=== PATIENT | male | born 1975 | race Asian ===

== ENCOUNTER 2016-10-18 14:30 | Emergency (ER) | payer BC, OTHER ==
[~2016-10-18] VITALS: Ht 175.3 cm; Wt 79.0 kg
[2016-10-18 14:38] VITALS: Ht 175.3 cm; Wt 79.0 kg
--- NOTE | 2016-10-18 14:56 | EMERGENCY ROOM VISIT NOTE ---
History Report prepared by Daniel: Funmi Fleming Under the Supervision of: Dr. Tulio Smith M.D. First contact with patient: 14:30 Stated Complaint: SEIZURE History of Present Illness The patient is a 40 year old male who presents to the Emergency Room via ALS after a sudden seizure that occurred just prior to arrival. Per EMS the patient arrived to the emergency department actively seizing. I evaluated the patient in the ambulance bay and he was given 2 mg of IV Ativan. EMS reports that the patient is a academic coach at the [employer] and had a grandmal seizure. EMS reports that the patient was incoherent, uncooperative, and disoriented. The patient denies any history of seizures. He denies any tongue bite or urinary or bowel incontinence. The history is limited due to the patient being post ictal. Source of History: patient, EMS History Limited By: other (post ictal) Onset: prior to arrival Position: other (global) Quality: other (seizure) Timing: other (sudden) Note: Associated Symptoms: incoherent, uncooperative, disoriented Review of Systems See HPI for pertinent positives & negatives. A total of 10 systems reviewed and were otherwise negative. Past Medical & Surgical No active medical problems Family History No pertinent family history stated. Social History Marital Status: single Occupation Status: employed Current/Historical Medications Scheduled Mirtazapine (Remeron), 15 MG PO BID Allergies Coded Allergies: No Known Allergies (Unverified , 08/16/10) Physical Exam Vital Signs Date Time Temp Pulse Resp B/P (MAP) Pulse Ox O2 Delivery O2 Flow Rate FiO2 10/18/16 18:32 37.5 95 16 135/82 100 10/18/16 18:00 95 16 10/18/16 17:55 91 20 10/18/16 17:54 135/82 10/18/16 17:50 92 13 100 10/18/16 17:45 90 14 100 10/18/16 17:40 99 15 75 10/18/16 17:35 95 13 94 10/18/16 17:32 10/18/16 17:30 97 13 98 10/18/16 17:25 110 18 98 10/18/16 17:20 109 32 97 10/18/16 17:15 104 21 10/18/16 17:10 104 15 98 10/18/16 17:05 107 14 97 10/18/16 17:02 119/92 10/18/16 17:00 107 15 100 10/18/16 16:55 99 12 98 10/18/16 16:50 104 14 97 10/18/16 16:45 109 13 99 10/18/16 16:40 108 17 98 10/18/16 16:35 104 14 97 10/18/16 16:32 121/69 10/18/16 16:30 108 17 96 10/18/16 16:25 109 23 98 10/18/16 16:20 106 15 98 10/18/16 16:15 109 16 97 10/18/16 16:10 116 18 98 10/18/16 16:05 107 16 98 10/18/16 16:01 141/87 10/18/16 16:00 114 18 98 10/18/16 15:55 112 16 98 10/18/16 15:50 108 16 97 10/18/16 15:45 110 15 98 10/18/16 15:40 112 16 97 10/18/16 15:35 117 19 97 10/18/16 15:34 138/83 10/18/16 15:32 108 10/18/16 15:30 116 17 98 10/18/16 15:22 94 Room Air 10/18/16 14:38 37.5 124 26 140/88 94 Room Air Physical Exam GENERAL: Patient awake, alert, oriented x 3. Patient follows commands. Patient does not appear toxic. Patient is adequately hydrated and well- nourished. SKIN: No erythema, pallor, cyanosis or rash HEENT: Normal head, pupils equal, reactive to light and accommodation. Ears normal. Oral cavity and posterior pharynx appear normal. Neck: Without adenopathy, no neck vein distention. LUNGS: Clear to auscultation. No wheezes, no rales, no rhonchi. HEART: No murmurs. No gallops. No rubs ABDOMEN: No masses, no rebound, no hepatomegaly or splenomegaly. EXTREMITIES:Abrasions on both elbows and both knees, no other signs of trauma. No pedal or pretibial edema. No calf or thigh tenderness. NEUROLOGIC: Cranial nerves II-XII within normal limits. No gross motor sensory function deficits. Medical Decision & Procedures ER Provider Diagnostic Interpretation: Radiology results as stated below per my review and radiologist interpretation: CT SCAN OF THE BRAIN WITHOUT IV CONTRAST CLINICAL HISTORY: Seizure. COMPARISON STUDY: CT of the brain dated 08/17/2010. TECHNIQUE: Unenhanced axial CT scan of the brain is performed from the vertex to the skull base. Automated dose control exposure was utilized. CT DOSE: 537.48 mGy.cm FINDINGS: Brain parenchyma: The brain parenchyma is normal in appearance. There is no hemorrhage, mass effect, or evidence of acute territorial ischemia by CT criteria. Baldwin-white matter is preserved. No extra-axial fluid collection is seen. Ventricles, sulci, cisterns: Normal in configuration. Intracranial vasculature: The visualized intracranial vasculature at the skull base is normal in appearance. Calvarium: Unremarkable. Sinuses and mastoids: The visualized paranasal sinuses are clear. The mastoid air cells are well pneumatized. Orbits: The bony orbits are grossly intact. IMPRESSION: No acute intracranial abnormality. Electronically signed by: Cisco Giles M.D. 10/18/2016 3:22 PM Dictated Date/Time: 10/18/2016 3:20 PM SINGLE VIEW CHEST CLINICAL HISTORY: Seizure. FINDINGS: 2 AP, portable, upright chest radiographs are obtained. No prior studies are available for comparison at the time of dictation. The examination is degraded by portable technique and patient rotation. The cardiomediastinal silhouette is unremarkable. The lungs and pleural spaces are clear. No pneumothorax is seen. The bony thorax is grossly intact. IMPRESSION: No active disease in the chest. Electronically signed by: Cisco Giles M.D. 10/18/2016 3:24 PM Dictated Date/Time: 10/18/2016 3:23 PM Laboratory Results 10/18/16 15:00 Red Blood Count 4.32, Mean Corpuscular Volume 88.9, Mean Corpuscular Hemoglobin 31.3, Mean Corpuscular Hemoglobin Concent 35.2, Mean Platelet Volume 10.2, Neutrophils (%) (Auto) 63.4, Lymphocytes (%) (Auto) 29.1, Monocytes (%) (Auto) 6.0, Eosinophils (%) (Auto) 1.1, Basophils (%) (Auto) 0.2, Neutrophils # (Auto) 5.28, Lymphocytes # (Auto) 2.42, Monocytes # (Auto) 0.50, Eosinophils # (Auto) 0.09, Basophils # (Auto) 0.02 10/18/16 15:00 Test 10/18/16 15:00 10/18/16 18:30 White Blood Count 8.33 K/uL (4.8-10.8) Red Blood Count 4.32 M/uL (4.7-6.1) Hemoglobin 13.5 g/dL (14.0-18.0) Hematocrit 38.4 % (42-52) Mean Corpuscular Volume 88.9 fL (80-100) Mean Corpuscular Hemoglobin 31.3 pg (25-34) Mean Corpuscular Hemoglobin Concent 35.2 g/dl (32-36) Platelet Count 291 K/uL (130-400) Mean Platelet Volume 10.2 fL (7.4-10.4) Neutrophils (%) (Auto) 63.4 % Lymphocytes (%) (Auto) 29.1 % Monocytes (%) (Auto) 6.0 % Eosinophils (%) (Auto) 1.1 % Basophils (%) (Auto) 0.2 % Neutrophils # (Auto) 5.28 K/uL (1.4-6.5) Lymphocytes # (Auto) 2.42 K/uL (1.2-3.4) Monocytes # (Auto) 0.50 K/uL (0.11-0.59) Eosinophils # (Auto) 0.09 K/uL (0-0.5) Basophils # (Auto) 0.02 K/uL (0-0.2) RDW Standard Deviation 41.5 fL (36.4-46.3) RDW Coefficient of Variation 12.8 % (11.5-14.5) Immature Granulocyte % (Auto) 0.2 % Immature Granulocyte # (Auto) 0.02 K/uL (0.00-0.02) Anion Gap 9.0 mmol/L (3-11) Est Creatinine Clear Calc Drug Dose 99.2 ml/min Estimated GFR () 109.4 Estimated GFR (Non- 94.4 BUN/Creatinine Ratio 10.1 (10-20) Calcium Level 8.4 mg/dl (8.5-10.1) Total Bilirubin 0.5 mg/dl (0.2-1) Aspartate Amino Transf (AST/SGOT) 23 U/L (15-37) Alanine Aminotransferase (ALT/SGPT) 24 U/L (12-78) Alkaline Phosphatase 97 U/L (45-117) Troponin I < 0.015 ng/ml (0-0.045) Total Protein 7.5 gm/dl (6.4-8.2) Albumin 4.1 gm/dl (3.4-5.0) Globulin 3.4 gm/dl (2.5-4.0) Albumin/Globulin Ratio 1.2 (0.9-2) Thyroid Stimulating Hormone (TSH) 2.330 uIu/ml (0.300-4.500) Urine Color YELLOW Urine Appearance CLEAR (CLEAR) Urine pH 7.5 (4.5-7.5) Urine Specific [place] 1.005 (1.000-1.030) Urine Protein NEG (NEG) Urine Glucose (UA) NEG (NEG) Urine Ketones NEG (NEG) Urine Occult Blood NEG (NEG) Urine Nitrite NEG (NEG) Urine Bilirubin NEG (NEG) Urine Urobilinogen NEG (NEG) Urine Leukocyte Esterase NEG (NEG) Urine Opiates Screen NEG (NEG) Urine Methadone, Qualitative NEG (NEG) Urine Barbiturates NEG (NEG) Ur Amphetamine/Methamphetamine NEG (NEG) MDMA (Ecstasy) Screen NEG (NEG) Urine Benzodiazepines Screen NEG (NEG) Urine Cocaine Metabolite NEG (NEG) Urine Marijuana (THC) NEG (NEG) Laboratory results as stated above per my review. ECG Indication: other (seizure) Rate (beats per minute): 111 Rhythm: sinus tachycardia Findings: no acute ischemic change, no ectopy ED Course 1448: Past medical records reviewed. The patient was evaluated in room B10. A complete history and physical examination was performed. 1720: I reevaluated the patient and he is resting comfortably. I discussed the exam findings with him and I discussed the treatment plan. He verbalized complete understanding and agreement. He will be ready to go home shortly. Medical Decision Nurses notes reviewed. Medical history sheet reviewed. Differential diagnosis includes but is not limited to: seizure, dehydration metabolic disorder, intracranial mass. Medication Reconciliation: I attest that I have personally reviewed the patient' s current medication list. Blood pressure Screening: Patient was found to have normal blood pressure on screening and does not require follow up. The patient had a shaking spell while at the [employer] most consistent with a grand mal seizure. The patient did not appear to have urinary or bowel incontinence. He did not appear to bite his tongue. Paramedics were called and picked up the patient. The patient was extremely agitated and noncompliant. Patient required 2 mg IV Ativan to control him in the ambulance. Patient was reevaluated here in the ED. The patient admits to getting very little sleep in the past few days. He also has been drinking a lot of caffeine. He had multiple labs, EKG and imaging. Please see above. The patient has no obvious metabolic or infectious problem. CT was clear. The patient does not want any further workup done at this time. A form for the [place] [employer] transportation was completed. Impression Primary Impression: Grand mal seizure Scribe Attestation The scribe's documentation has been prepared under my direction and personally reviewed by me in its entirety. I confirm that the note above accurately reflects all work, treatment, procedures, and medical decision making performed by me. Departure Information Dispostion Home / Self-Care Referrals No Doctor, Assigned (PCP) Forms HOME CARE DOCUMENTATION FORM, IMPORTANT VISIT INFORMATION Patient Instructions ED Seizure New Onset Unk Cause, My [facility] Additional Instructions REST You cannot drive any motor vehicles until cleared by a family physician or neurologist. Follow-up with your family physician as soon as possible. Return here immediately if you have another seizure. Off work and school for the next 2 days.
[2016-10-18 15:14] LABS: BASO % 0.2 %; BASO ABS # 0.02 K/uL (0-0.2); COMPLETE YES; EOS % 1.1 %; HEMATOCRIT 38.4 % (42-52); IG% 0.2 %; LYMPH % 29.1 %; LYMPH ABS # 2.42 K/uL (1.2-3.4); MEAN CELL VOLUME 88.9 fL (80-100); MEAN CORPUSCULAR HEMOGLOBIN 31.3 pg (25-34); MEAN CORPUSCULAR HGB CONC 35.2 g/dl (32-36); MEAN PLATELET VOLUME 10.2 fL (7.4-10.4); NEUT % 63.4 %; PLATELET COUNT 291 K/uL (130-400); RED BLOOD COUNT 4.32 M/uL (4.7-6.1); WHITE BLOOD COUNT 8.33 K/uL (4.8-10.8)
[2016-10-18 15:22] VITALS: O2SAT 94
--- NOTE | 2016-10-18 15:23 | DIAGNOSTIC IMAGING REPORT ---
CT SCAN OF THE BRAIN WITHOUT IV CONTRAST CLINICAL HISTORY: Seizure. COMPARISON STUDY: CT of the brain dated 08/17/2010. TECHNIQUE: Unenhanced axial CT scan of the brain is performed from the vertex to the skull base. Automated dose control exposure was utilized. CT DOSE: 537.48 mGy.cm FINDINGS: Brain parenchyma: The brain parenchyma is normal in appearance. There is no hemorrhage, mass effect, or evidence of acute territorial ischemia by CT criteria. Baldwin-white matter is preserved. No extra-axial fluid collection is seen. Ventricles, sulci, cisterns: Normal in configuration. Intracranial vasculature: The visualized intracranial vasculature at the skull base is normal in appearance. Calvarium: Unremarkable. Sinuses and mastoids: The visualized paranasal sinuses are clear. The mastoid air cells are well pneumatized. Orbits: The bony orbits are grossly intact. IMPRESSION: No acute intracranial abnormality. Electronically signed by: Cisco Giles M.D. 10/18/2016 3:22 PM Dictated Date/Time: 10/18/2016 3:20 PM
--- NOTE | 2016-10-18 15:25 | DIAGNOSTIC IMAGING REPORT ---
SINGLE VIEW CHEST CLINICAL HISTORY: Seizure. FINDINGS: 2 AP, portable, upright chest radiographs are obtained. No prior studies are available for comparison at the time of dictation. The examination is degraded by portable technique and patient rotation. The cardiomediastinal silhouette is unremarkable. The lungs and pleural spaces are clear. No pneumothorax is seen. The bony thorax is grossly intact. IMPRESSION: No active disease in the chest. Electronically signed by: Cisco Giles M.D. 10/18/2016 3:24 PM Dictated Date/Time: 10/18/2016 3:23 PM
[2016-10-18] MEDS ORDERED: MIRT15TA3 PO (15:27)
[2016-10-18 15:31] LABS: ALT/SGPT 24 U/L (12-78); AST/SGOT 23 U/L (15-37); BLOOD UREA NITROGEN 10 mg/dl (7-18); BUN/CREATININE RATIO 10.1 (10-20); CALCIUM 8.4 mg/dl (8.5-10.1); CARBON DIOXIDE 25 mmol/L (21-32); CHLORIDE 110 mmol/L (98-107); GLUCOSE 120 mg/dl (70-99); POTASSIUM 3.5 mmol/L (3.5-5.1); SODIUM 144 mmol/L (136-145)
[2016-10-18 15:42] LABS: ALB/GLOB RATIO 1.2 (0.9-2); ALKALINE PHOSPHATASE 97 U/L (45-117)
[2016-10-18 18:32] VITALS: BP 135/82; PULSE 95; TEMP 37.5; O2SAT 100
[2016-10-18 18:36] LABS: URINE APPEARANCE CLEAR (CLEAR); URINE BILIRUBIN NEG (NEG); URINE COLOR YELLOW; URINE NITRITE NEG (NEG); URINE PH 7.5 (4.5-7.5); URINE SPECIFIC GRAVITY 1.005 (1.000-1.030); UROBILINOGEN NEG (NEG); ZZUR CULT IF INDIC CLEAN CATCH NO
[2016-10-18 18:49] LABS: MANUAL MICROSCOPIC REQUIRED? NO; REVIEW REQ? NO
[2016-10-18 18:58] LABS: BENZODIAZEPINE, URINE NEG (NEG); COCAINE,URINE NEG (NEG); PHENCYCLIDINE, URINE POS (NEG)
[2016-10-22 09:17] LABS: PHENCYCLIDINE GC/MS 304 NG/ML (CUTOFF=25)
== END 2016-10-18 18:34 | disposition home or self-care (01) ==
LOC: EDBD 14:30 → C.EDB 14:33
DX: G40.909 Epilepsy, unspecified, not intractable, without status epilepticus (principal); R00.0 Tachycardia, unspecified; Z79.899 Other long term (current) drug therapy